=== PATIENT | female | born 1935 | race Caucasian/White ===

== ENCOUNTER 2024-10-15 11:10 | Inpatient (IN) | payer MEDICARE, OTHER ==
[2024-10-15 11:37] LABS: BASOPHILS ABSOLUTE AUTO 0.01 K/uL (0.00-0.20); BASOPHILS PERCENT AUTO 0.1 % (0.0-2.0); EOSINOPHILS ABSOLUTE AUTO 0.17 K/uL (0.00-0.50); EOSINOPHILS PERCENT AUTO 2.2 % (0.0-5.0); IMMATURE GRAN ABSOLUTE AUTO 0.00 10^3/uL (0.00-0.04); IMMATURE GRAN PERCENT AUTO 0.0 % (0.0-0.4); LYMPHOCYTES ABSOLUTE AUTO 0.81 K/uL (0.50-3.50); LYMPHOCYTES PERCENT AUTO 10.5 % (10.0-50.0); MONOCYTES ABSOLUTE AUTO 0.79 K/uL (0.00-1.00); MONOCYTES PERCENT AUTO 10.3 % (2.0-14.0); NEUTROPHILS ABSOLUTE AUTO 5.92 K/uL (1.40-7.00); NEUTROPHILS PERCENT AUTO 76.9 % (45.0-80.0); PLATELET COUNT,PLT 151 K/uL (150-350); RED BLOOD CELL COUNT 4.20 M/uL (3.77-5.09); RED CELL DISTRIBUTION WIDTH 14.6 % (11.2-14.1); WHITE BLOOD CELL COUNT,WBC 7.7 K/uL (4.0-10.2)
[2024-10-15 12:05] LABS: ALANINE AMINOTRANSFERASE,ALT 29 U/L (12-78); ASPARTATE AMNIOTRANSFERASE,AST 27 U/L (15-37); BILIRUBIN TOTAL 0.7 mg/dL (0.2-1.0); BLOOD UREA NITROGEN,BUN 21 mg/dL (7-18); CARBON DIOXIDE,CO2 36.2 mmol/L (21.0-32.0); CHLORIDE,CL 106 mmol/L (98-107); CREATININE 0.77 mg/dL (0.51-1.17); GLUCOSE RANDOM 108 mg/dL (70-99); INR 1.3 (0.9-1.1); PRO B-TYPE NATRIUR PEPT,BNPPRO 10577 pg/mL (0-125); PROTEIN TOTAL,TP 6.3 g/dL (6.4-8.2); SODIUM,NA 144 mmol/L (136-145)
[2024-10-15 12:06] LABS: ESTIMATED GFR 75 mL/min (>=60); POTASSIUM,K 5.8 mmol/L (3.5-5.1)
[2024-10-15 12:10] LABS: LACTIC ACID 1.4 mmol/L (0.4-2.0)
[2024-10-15 12:52] LABS: PH ARTERIAL,POC 7.4 pH (7.35-7.45)
[2024-10-15 12:53] LABS: PCO2 ARTERIAL,POC 58 mmHg (35-48)
[2024-10-15 12:54] LABS: BASE EXCESS ARTERIAL,POC 10 mmol/L (-2-3); HCO3 ARTERIAL,POC 37.3 mmol/L (22-26); O2 SATURATION ARTERIAL,POC 92.8 % (95-98); PO2 ARTERIAL,POC 67 mmHg (83-108); TCO2 ARTERIAL,POC 35.7 mmol/L (23-27)
[2024-10-15] MEDS: Sodium Chloride 0.9% 10 ML Syringe FLUSH PRN (12:58)
[2024-10-15] MEDS: Furosemide 40 MG/4 ML VIAL IVPUSH ONE ×2 (12:58→18:16)
[2024-10-16 08:22] LABS: BASOPHILS ABSOLUTE AUTO 0.02 K/uL (0.00-0.20); BASOPHILS PERCENT AUTO 0.3 % (0.0-2.0); EOSINOPHILS ABSOLUTE AUTO 0.13 K/uL (0.00-0.50); EOSINOPHILS PERCENT AUTO 1.8 % (0.0-5.0); IMMATURE GRAN ABSOLUTE AUTO 0.00 10^3/uL (0.00-0.04); IMMATURE GRAN PERCENT AUTO 0.0 % (0.0-0.4); LYMPHOCYTES ABSOLUTE AUTO 1.01 K/uL (0.50-3.50); LYMPHOCYTES PERCENT AUTO 13.8 % (10.0-50.0); MONOCYTES ABSOLUTE AUTO 0.77 K/uL (0.00-1.00); MONOCYTES PERCENT AUTO 10.5 % (2.0-14.0); NEUTROPHILS ABSOLUTE AUTO 5.39 K/uL (1.40-7.00); NEUTROPHILS PERCENT AUTO 73.6 % (45.0-80.0); PLATELET COUNT,PLT 172 K/uL (150-350); RED BLOOD CELL COUNT 4.28 M/uL (3.77-5.09); RED CELL DISTRIBUTION WIDTH 15.0 % (11.2-14.1); WHITE BLOOD CELL COUNT,WBC 7.3 K/uL (4.0-10.2)
[2024-10-16] MEDS: Cholecalciferol (Vitamin D3) 25 MCG Tab PO SCH (08:26)
[2024-10-16] MEDS: DAPAGLIFLOZIN PROPANEDIOL 10 MG PO SCH (08:29)
[2024-10-16 08:35] LABS: ALANINE AMINOTRANSFERASE,ALT 19 U/L (12-78); ASPARTATE AMNIOTRANSFERASE,AST 22 U/L (15-37); BILIRUBIN TOTAL 0.7 mg/dL (0.2-1.0); BLOOD UREA NITROGEN,BUN 23 mg/dL (7-18); CHLORIDE,CL 102 mmol/L (98-107); CREATININE 1.09 mg/dL (0.51-1.17); GLUCOSE RANDOM 97 mg/dL (70-99); POTASSIUM,K 5.2 mmol/L (3.5-5.1); PRO B-TYPE NATRIUR PEPT,BNPPRO 9274 pg/mL (0-125); PROTEIN TOTAL,TP 6.1 g/dL (6.4-8.2); SODIUM,NA 143 mmol/L (136-145)
[2024-10-16 08:48] LABS: CARBON DIOXIDE,CO2 42.3 mmol/L (21.0-32.0); ESTIMATED GFR 49 mL/min (>=60)
[2024-10-16] MEDS: Furosemide 40 MG/4 ML VIAL IVPUSH ONE ×2 (09:33→18:43)
[2024-10-17 08:02] LABS: BASOPHILS ABSOLUTE AUTO 0.02 K/uL (0.00-0.20); BASOPHILS PERCENT AUTO 0.3 % (0.0-2.0); EOSINOPHILS ABSOLUTE AUTO 0.24 K/uL (0.00-0.50); EOSINOPHILS PERCENT AUTO 3.5 % (0.0-5.0); IMMATURE GRAN ABSOLUTE AUTO 0.00 10^3/uL (0.00-0.04); IMMATURE GRAN PERCENT AUTO 0.0 % (0.0-0.4); LYMPHOCYTES ABSOLUTE AUTO 1.10 K/uL (0.50-3.50); LYMPHOCYTES PERCENT AUTO 16.2 % (10.0-50.0); MONOCYTES ABSOLUTE AUTO 0.73 K/uL (0.00-1.00); MONOCYTES PERCENT AUTO 10.8 % (2.0-14.0); NEUTROPHILS ABSOLUTE AUTO 4.68 K/uL (1.40-7.00); NEUTROPHILS PERCENT AUTO 69.2 % (45.0-80.0); PLATELET COUNT,PLT 181 K/uL (150-350); RED BLOOD CELL COUNT 4.08 M/uL (3.77-5.09); RED CELL DISTRIBUTION WIDTH 14.7 % (11.2-14.1); WHITE BLOOD CELL COUNT,WBC 6.8 K/uL (4.0-10.2)
[2024-10-17 08:16] LABS: ALANINE AMINOTRANSFERASE,ALT 23 U/L (12-78); ASPARTATE AMNIOTRANSFERASE,AST 26 U/L (15-37); BILIRUBIN TOTAL 0.6 mg/dL (0.2-1.0); BLOOD UREA NITROGEN,BUN 25 mg/dL (7-18); CHLORIDE,CL 100 mmol/L (98-107); CREATININE 1.05 mg/dL (0.51-1.17); GLUCOSE RANDOM 95 mg/dL (70-99); POTASSIUM,K 4.7 mmol/L (3.5-5.1); PRO B-TYPE NATRIUR PEPT,BNPPRO 6473 pg/mL (0-125); PROTEIN TOTAL,TP 5.9 g/dL (6.4-8.2); SODIUM,NA 141 mmol/L (136-145)
[2024-10-17 08:23] LABS: CARBON DIOXIDE,CO2 41.1 mmol/L (21.0-32.0); ESTIMATED GFR 51 mL/min (>=60)
[2024-10-17] MEDS: Furosemide 20 MG/2 ML VIAL IVPUSH ONE (15:11)
[2024-10-17 15:24] LABS: O2 DELIVERY DEVICE NASAL CANNULA; PCO2 VENOUS 45 mmHG (41-51); PH,VENOUS 7.49 (7.31-7.41); PO2 VENOUS 99 mmHG
[2024-10-17 15:25] LABS: BASE EXCESS VENOUS 10 mmol/L ((-2)-3); BICARBONATE,VENOUS 34 mmol/L (23-28); O2 SATURATION VENOUS 98 %
[2024-10-18 08:34] LABS: BASOPHILS ABSOLUTE AUTO 0.04 K/uL (0.00-0.20); BASOPHILS PERCENT AUTO 0.6 % (0.0-2.0); EOSINOPHILS ABSOLUTE AUTO 0.21 K/uL (0.00-0.50); EOSINOPHILS PERCENT AUTO 3.1 % (0.0-5.0); IMMATURE GRAN ABSOLUTE AUTO 0.01 10^3/uL (0.00-0.04); IMMATURE GRAN PERCENT AUTO 0.1 % (0.0-0.4); LYMPHOCYTES ABSOLUTE AUTO 1.30 K/uL (0.50-3.50); LYMPHOCYTES PERCENT AUTO 19.0 % (10.0-50.0); MONOCYTES ABSOLUTE AUTO 0.86 K/uL (0.00-1.00); MONOCYTES PERCENT AUTO 12.6 % (2.0-14.0); NEUTROPHILS ABSOLUTE AUTO 4.41 K/uL (1.40-7.00); NEUTROPHILS PERCENT AUTO 64.6 % (45.0-80.0); PLATELET COUNT,PLT 199 K/uL (150-350); RED BLOOD CELL COUNT 4.17 M/uL (3.77-5.09); RED CELL DISTRIBUTION WIDTH 14.6 % (11.2-14.1); WHITE BLOOD CELL COUNT,WBC 6.8 K/uL (4.0-10.2)
[2024-10-18 09:13] LABS: ALANINE AMINOTRANSFERASE,ALT 27 U/L (12-78); ASPARTATE AMNIOTRANSFERASE,AST 24 U/L (15-37); BILIRUBIN TOTAL 0.6 mg/dL (0.2-1.0); BLOOD UREA NITROGEN,BUN 24 mg/dL (7-18); CHLORIDE,CL 101 mmol/L (98-107); CREATININE 0.92 mg/dL (0.51-1.17); GLUCOSE RANDOM 93 mg/dL (70-99); POTASSIUM,K 5.2 mmol/L (3.5-5.1); PRO B-TYPE NATRIUR PEPT,BNPPRO 4439 pg/mL (0-125); PROTEIN TOTAL,TP 6.2 g/dL (6.4-8.2); SODIUM,NA 140 mmol/L (136-145)
[2024-10-18 09:19] LABS: ESTIMATED GFR 60 mL/min (>=60)
[2024-10-18 09:20] LABS: CARBON DIOXIDE,CO2 42.0 mmol/L (21.0-32.0)
[2024-10-18] MEDS ORDERED: Furosemide 40 MG/4 ML VIAL IVPUSH ONE (12:10)
[2024-10-18] MEDS: Furosemide 20 MG/2 ML VIAL IVPUSH ONE (13:10)
[2024-10-19 08:17] VITALS: BP 116/70
[2024-10-19 09:05] LABS: BLOOD UREA NITROGEN,BUN 35.0 mg/dL (7-18); CARBON DIOXIDE,CO2 39.6 mmol/L (21.0-32.0); CHLORIDE,CL 99.0 mmol/L (98-107); CREATININE 1.05 mg/dL (0.51-1.17); EST CRCL DRUG DOSING (CG) 23.89 mL/min; GLUCOSE RANDOM 155.0 mg/dL (70-99); POTASSIUM,K 4.4 mmol/L (3.5-5.1); SODIUM,NA 137.0 mmol/L (136-145)
[2024-10-19 09:08] LABS: ESTIMATED GFR 51.0 mL/min (>=60)
[2024-10-19 09:29] VITALS: PULSE 74
== END 2024-10-19 12:30 | disposition swing bed (61) | DRG 291 ==
LOC: LL.ED 11:10 → LL.MS 16:00
PROVIDERS: ADMIT Physician Assistant; ATTEND Physician Assistant
PROC: 4A033R1 Measurement of Arterial Saturation, Peripheral, Percutaneous Approach (ICD-10-PCS; principal; 2024-10-15)
DX: I11.0 Hypertensive heart disease with heart failure (principal); I50.43 Acute on chronic combined systolic (congestive) and diastolic (congestive) heart failure; J30.9 Allergic rhinitis, unspecified; Z88.1 Allergy status to other antibiotic agents; H40.9 Unspecified glaucoma; H91.90 Unspecified hearing loss, unspecified ear; H54.7 Unspecified visual loss; E78.00 Pure hypercholesterolemia, unspecified; E55.9 Vitamin D deficiency, unspecified; F41.9 Anxiety disorder, unspecified; I48.0 Paroxysmal atrial fibrillation; I25.2 Old myocardial infarction; K21.9 Gastro-esophageal reflux disease without esophagitis; M54.9 Dorsalgia, unspecified; G89.29 Other chronic pain; Z86.73 Personal history of transient ischemic attack (TIA), and cerebral infarction without residual deficits; Z98.890 Other specified postprocedural states; Z88.8 Allergy status to other drugs, medicaments and biological substances; Z79.01 Long term (current) use of anticoagulants; Z79.82 Long term (current) use of aspirin; Z98.49 Cataract extraction status, unspecified eye; Z79.899 Other long term (current) drug therapy; Z98.51 Tubal ligation status; Z96.659 Presence of unspecified artificial knee joint; Z87.891 Personal history of nicotine dependence
CPT/HCPCS: 36415; 51702; 71250; 80053; 82803; 83605; 83735; 83880; 84132; 84484; 85025; 85610; 93005; 93010; 94640; 96374; 99285; A9270; J1938; U0002; 80048; 97110-GP; 97162-GP; 99223; 99232; 99238

== ENCOUNTER 2024-10-19 09:18 | Inpatient (IN) | payer MEDICARE, OTHER ==
[2024-10-19] MEDS ORDERED: Sodium Chloride 0.9% 10 ML Syringe FLUSH PRN (10:38)
[2024-10-20] MEDS: Dapagliflozin Propanediol [Farxiga] 10 MG PO SCH (07:27)
[2024-10-20] MEDS: Cholecalciferol (Vitamin D3) 25 MCG Tab PO SCH (07:27)
[2024-10-24 08:44] LABS: GLUCOSE,URINE 500 mg/dL (NEGATIVE); OCCULT BLOOD,URINE NEGATIVE (NEGATIVE)
[2024-10-24 08:50] LABS: APPEARANCE,URINE SLIGHTLY CLOUDY
[2024-10-24] MEDS: Nitrofurantoin Monohydrate/Macrocrystalline 100 MG Cap PO SCH ×2 (14:40→20:45)
[2024-10-25 07:42] LABS: BASOPHILS ABSOLUTE AUTO 0.04 K/uL (0.00-0.20); BASOPHILS PERCENT AUTO 0.8 % (0.0-2.0); EOSINOPHILS ABSOLUTE AUTO 0.17 K/uL (0.00-0.50); EOSINOPHILS PERCENT AUTO 3.2 % (0.0-5.0); IMMATURE GRAN ABSOLUTE AUTO 0.01 10^3/uL (0.00-0.04); IMMATURE GRAN PERCENT AUTO 0.2 % (0.0-0.4); LYMPHOCYTES ABSOLUTE AUTO 1.21 K/uL (0.50-3.50); LYMPHOCYTES PERCENT AUTO 22.9 % (10.0-50.0); MONOCYTES ABSOLUTE AUTO 0.61 K/uL (0.00-1.00); MONOCYTES PERCENT AUTO 11.6 % (2.0-14.0); NEUTROPHILS ABSOLUTE AUTO 3.24 K/uL (1.40-7.00); NEUTROPHILS PERCENT AUTO 61.3 % (45.0-80.0); PLATELET COUNT,PLT 203 K/uL (150-350); RED BLOOD CELL COUNT 3.74 M/uL (3.77-5.09); RED CELL DISTRIBUTION WIDTH 14.7 % (11.2-14.1); WHITE BLOOD CELL COUNT,WBC 5.3 K/uL (4.0-10.2)
[2024-10-25 08:01] LABS: BLOOD UREA NITROGEN,BUN 43.0 mg/dL (7-18); CARBON DIOXIDE,CO2 36.0 mmol/L (21.0-32.0); CHLORIDE,CL 102.0 mmol/L (98-107); CREATININE 1.06 mg/dL (0.51-1.17); EST CRCL DRUG DOSING (CG) 24.14 mL/min; GLUCOSE RANDOM 91.0 mg/dL (70-99); POTASSIUM,K 4.9 mmol/L (3.5-5.1); SODIUM,NA 140.0 mmol/L (136-145)
[2024-10-25 08:14] LABS: ESTIMATED GFR 51.0 mL/min (>=60)
[2024-10-25 10:26] VITALS: BP 119/63; PULSE 53
== END 2024-10-25 11:30 | DRG 948 ==
LOC: LL.MS 12:32
PROVIDERS: ADMIT Emergency Medicine; ATTEND Emergency Medicine
DX: R53.1 Weakness (principal); N30.00 Acute cystitis without hematuria; F03.A0 Unspecified dementia, mild, without behavioral disturbance, psychotic disturbance, mood disturbance, and anxiety; E87.5 Hyperkalemia; I50.9 Heart failure, unspecified; Z79.01 Long term (current) use of anticoagulants; Z79.899 Other long term (current) drug therapy; Z79.82 Long term (current) use of aspirin
CPT/HCPCS: 36415; 80048; 81001; 85025; 87086; 97110-GO; 97110-GP; 97164-GP; 97165-GO; 97530-GO; 97530-GP; 97535-GO; 99316; A9270-GY

== ENCOUNTER 2025-01-05 11:20 | Inpatient (IN) | payer MEDICARE, OTHER ==
[2025-01-05 12:50] LABS: BASOPHILS ABSOLUTE AUTO 0.03 K/uL (0.00-0.20); BASOPHILS PERCENT AUTO 0.4 % (0.0-2.0); EOSINOPHILS ABSOLUTE AUTO 0.21 K/uL (0.00-0.50); EOSINOPHILS PERCENT AUTO 2.6 % (0.0-5.0); IMMATURE GRAN ABSOLUTE AUTO 0.01 10^3/uL (0.00-0.04); IMMATURE GRAN PERCENT AUTO 0.1 % (0.0-0.4); LYMPHOCYTES ABSOLUTE AUTO 0.75 K/uL (0.50-3.50); LYMPHOCYTES PERCENT AUTO 9.1 % (10.0-50.0); MONOCYTES ABSOLUTE AUTO 0.85 K/uL (0.00-1.00); MONOCYTES PERCENT AUTO 10.3 % (2.0-14.0); NEUTROPHILS ABSOLUTE AUTO 6.37 K/uL (1.40-7.00); NEUTROPHILS PERCENT AUTO 77.5 % (45.0-80.0); PLATELET COUNT,PLT 262 K/uL (150-350); RED BLOOD CELL COUNT 3.46 M/uL (3.77-5.09); RED CELL DISTRIBUTION WIDTH 14.0 % (11.2-14.1); WHITE BLOOD CELL COUNT,WBC 8.2 K/uL (4.0-10.2)
[2025-01-05] MEDS ORDERED: Ondansetron 4 MG Tab.DIS PO PRN (13:02)
[2025-01-05 13:11] LABS: ALANINE AMINOTRANSFERASE,ALT 20 U/L (12-78); ASPARTATE AMNIOTRANSFERASE,AST 15 U/L (15-37); BILIRUBIN TOTAL 0.4 mg/dL (0.2-1.0); BLOOD UREA NITROGEN,BUN 32 mg/dL (7-18); CHLORIDE,CL 98 mmol/L (98-107); CREATININE 1.45 mg/dL (0.51-1.17); ESTIMATED GFR 35 mL/min (>=60); GLUCOSE RANDOM 139 mg/dL (70-99); POTASSIUM,K 3.7 mmol/L (3.5-5.1); PROTEIN TOTAL,TP 7.3 g/dL (6.4-8.2); SODIUM,NA 144 mmol/L (136-145)
[2025-01-05 13:12] LABS: CARBON DIOXIDE,CO2 42.0 mmol/L (21.0-32.0)
[2025-01-06] MEDS: Cholecalciferol (Vitamin D3) 25 MCG Tab PO SCH (07:46)
[2025-01-08] MEDS: Zinc (Zinc Gluconate) 50 MG Tab PO SCH (09:14)
[2025-01-13 07:29] VITALS: BP 135/55; PULSE 81
[2025-01-13] MEDS: FLU (Fluad Triv) 25-26 (65UP)/MF59C/PF 45 MCG/0.5 ML Syringe IM ONE (09:58)
== END 2025-01-13 10:15 | DRG 948 ==
LOC: LL.MS 12:47
PROVIDERS: ADMIT Physician Assistant; ATTEND Physician Assistant
DX: R53.81 Other malaise (principal); N17.9 Acute kidney failure, unspecified; I50.22 Chronic systolic (congestive) heart failure; J96.11 Chronic respiratory failure with hypoxia; D64.9 Anemia, unspecified; R62.7 Adult failure to thrive; I48.0 Paroxysmal atrial fibrillation; I11.0 Hypertensive heart disease with heart failure; I25.10 Atherosclerotic heart disease of native coronary artery without angina pectoris; J30.9 Allergic rhinitis, unspecified; M81.0 Age-related osteoporosis without current pathological fracture; R91.1 Solitary pulmonary nodule; I51.9 Heart disease, unspecified; H91.90 Unspecified hearing loss, unspecified ear; H54.7 Unspecified visual loss; E78.00 Pure hypercholesterolemia, unspecified; K21.9 Gastro-esophageal reflux disease without esophagitis; M54.9 Dorsalgia, unspecified; G89.29 Other chronic pain; Z96.659 Presence of unspecified artificial knee joint; I25.2 Old myocardial infarction; Z79.01 Long term (current) use of anticoagulants; Z86.73 Personal history of transient ischemic attack (TIA), and cerebral infarction without residual deficits; Z88.1 Allergy status to other antibiotic agents; Z88.8 Allergy status to other drugs, medicaments and biological substances; Z98.49 Cataract extraction status, unspecified eye; Z98.890 Other specified postprocedural states; Z85.038 Personal history of other malignant neoplasm of large intestine; Z79.899 Other long term (current) drug therapy; Z79.82 Long term (current) use of aspirin; Z99.81 Dependence on supplemental oxygen; Z98.51 Tubal ligation status
CPT/HCPCS: 36415; 80053; 85025; 90653; 97110-GO; 97110-GP; 97129-GO; 97162-GP; 97165-GO; 97530-GP; 97535-GO; A9270-GY